=== PATIENT | female | born 1970 | race Caucasian/White ===

== ENCOUNTER → 2021-08-03 14:28 | Outpatient (BNVA) | payer BC, SELFPAY | PROVIDERS: Family Provider Family Medicine; PCP Nurse Practitioner Family; Visit Provider Nurse Practitioner Family | DX: R10.9 Unspecified abdominal pain (principal); R19.7 Diarrhea, unspecified | CPT/HCPCS: 80053; 81000; 85025 ==

== ENCOUNTER 2021-08-12 07:33 | Outpatient (CLI) | payer BC, SELFPAY ==
[2021-08-12] MEDS: iohexol 300 mg/mL 100 mL Btl IV (08:23)
--- NOTE | 2021-08-12 08:30 | CT_ITS ---
WS: [id number] CT abdomen w con* [id number] REASON FOR EXAM: Left sided abd pain IV CONTRAST ADMINISTERED: 95 mL of Omnipaque 300 TOTAL EXAM DLP: 867.[address] scans at [facility] use at least one of these dose optimization techniques: automat ed exposure control; mA and/or kV adjustment per patient size (includes targeted exams where dose is matched to clinical indication); or iterative reconstruction. FINDINGS: Small hypoattenuation areas in the liver, bile cysts. No other focal liver abnormality. Pancreas and gallbladder are within normal limits. The spleen is normal. The adrenals are normal. The imaging only evaluates the kidneys in the nephrographic phase. There is a small calculus and a small cyst in the lower pole of the right kidney. The collecting systems appea r somewhat prominent bilaterally presumably this is due to extrarenal pelves with mild UPJ stenosis. No dilated ureters are identified. No mass or adenopathy. No focal fluid or free fluid. No bowel abnormality. No significant abnormality of the lumbar spine. CT/CT abdomen w con* [id number] IMPRESSION: No acute abnormality identified. Kidneys only evaluated in the nephrographic phase.
== END 2021-08-12 07:34 | disposition home or self-care (01) ==
LOC: RAD 07:34
PROVIDERS: Family Provider Family Medicine; PCP Nurse Practitioner Family; Visit Provider Nurse Practitioner Family
DX: R10.9 Unspecified abdominal pain (principal); R19.7 Diarrhea, unspecified
CPT/HCPCS: 74160

== ENCOUNTER → 2021-08-22 16:53 | Outpatient (BNVA) | payer BC, SELFPAY | PROVIDERS: Family Provider Family Medicine; PCP Nurse Practitioner Family; Visit Provider Nurse Practitioner Family | DX: Z01.818 Encounter for other preprocedural examination (principal); Z12.11 Encounter for screening for malignant neoplasm of colon | CPT/HCPCS: 87635 ==

== ENCOUNTER 2025-02-23 15:19 | Outpatient (CLI) | payer BC, SELFPAY ==
--- NOTE | 2025-02-23 15:29 | MM_ITS ---
WS: [id number] Bilateral screening 3D tomosynthesis digital mammogram, 02/23/2025 3:30 PM Clinical Data: SCREENING Comparison: 07/23/2016, 03/06/2016, 04/07/2010. Findings: No spiculated masses or clustered calcifications are seen. There are no secondary signs of carcinoma. MM/MM scr BI tomosynthesis [id number] Impression: Negative bilateral mammogram unchanged. Recommend annual screening mammograms. BIRADS: 2 - Benign. FOLLOW UP: 1 Year Follow-up DENSITY: There are scattered areas of fibroglandular density. The CAD ends down checker was used
== END 2025-02-23 15:20 | disposition home or self-care (01) ==
PROVIDERS: PCP Nurse Practitioner Family; Visit Provider Family Medicine
DX: Z12.31 Encounter for screening mammogram for malignant neoplasm of breast (principal); R92.323 Mammographic fibroglandular density, bilateral breasts
CPT/HCPCS: 77063; 77067